=== PATIENT | female | born 1995 | race Caucasian/White ===

== ENCOUNTER 2020-07-18 10:46 | Emergency (ER) | payer BC ==
[~2020-07-18] VITALS: Ht 180.3 cm; Wt 72.6 kg
[2020-07-18] MEDS ORDERED: HYDROCODON-ACE1 EAC7 PO (12:39)
[2020-07-18 12:55] VITALS: BP 118/78
== END 2020-07-18 12:55 | disposition home or self-care (01) ==
LOC: ER 10:46
DX: S62.525A Nondisplaced fracture of distal phalanx of left thumb, initial encounter for closed fracture (principal); V47.5XXA Car driver injured in collision with fixed or stationary object in traffic accident, initial encounter; Y93.I9 Activity, other involving external motion; Y92.488 Other paved roadways as the place of occurrence of the external cause; Y99.8 Other external cause status

== ENCOUNTER 2021-07-20 12:07 | Emergency (ER) | payer OTHER, BC ==
[~2021-07-20] VITALS: Ht 180.3 cm; Wt 77.1 kg
[~2021-07-20 12:07] MED LIST: HYDROCODON-ACE1 EAC7 PO
[2021-07-20] MEDS ORDERED: PROZAC10 M1 PO (12:18)
[2021-07-20 13:39] LABS: HEMATOCRIT 37.2 % (37.0-47.0); HEMOGLOBIN 12.4 gm/dL (12.0-15.0); MCH 30.8 pg (26.0-34.0); MCHC 33.4 g/dL (28.0-37.0); MCV 92.3 fL (80.0-100.0); RBC 4.03 mil/uL (4.20-5.00); RDW 12.5 % (10.5-14.5); WBC 6.5 thou/uL (4.0-11.0)
[2021-07-20 13:47] LABS: CALCIUM 8.6 mg/dL (8.5-10.1); CREATININE 0.6 mg/dL (0.6-1.0); POTASSIUM 3.5 mmol/L (3.5-5.1)
[2021-07-20 13:53] LABS: TOTAL BILIRUBIN 1.3 mg/dL (0.2-1.0); TOTAL PROTEIN 7.1 g/dL (6.4-8.2)
[2021-07-20 13:56] LABS: URINE BILIRUBIN NEGATIVE (Negative); URINE BLOOD NEGATIVE (Negative); URINE CLARITY CLEAR; URINE COLOR YELLOW; URINE GLUCOSE-RANDOM* NEGATIVE (Negative); URINE KETONES 2+ (Negative); URINE LEUKOCYTES-REFLEX NEGATIVE (Negative); URINE NITRITE-REFLEX NEGATIVE (Negative); URINE PROTEIN (DIPSTICK) NEGATIVE (Negative); URINE UROBILINOGEN 0.2 E.U./dl (0.2-1.0)
[2021-07-20 16:21] VITALS: BP 118/80
== END 2021-07-20 16:22 | disposition home or self-care (01) ==
LOC: ER 12:07
PROVIDERS: Student in an Organized Health Care Education/Training Program
DX: O21.9 Vomiting of pregnancy, unspecified (principal); Z3A.01 Less than 8 weeks gestation of pregnancy; Z79.899 Other long term (current) drug therapy